=== PATIENT | male | born 1985 | race Caucasian/White ===

== ENCOUNTER 2021-04-12 15:56 | Emergency (ER) | payer BC ==
[~2021-04-12] VITALS: Ht 175.3 cm; Wt 77.1 kg
[2021-04-12] MEDS ORDERED: AMOXIL 875 MG875 M2 PO ×2 (16:55→16:57)
[2021-04-12 17:01] VITALS: BP 130/54
== END 2021-04-12 17:02 | disposition home or self-care (01) ==
LOC: M.ERS 15:56
DX: J02.0 Streptococcal pharyngitis (principal); Z20.822 Contact with and (suspected) exposure to COVID-19; F15.10 Other stimulant abuse, uncomplicated